=== PATIENT | female | born 1970 | race Caucasian/White ===

== ENCOUNTER 2018-02-12 14:18 | Emergency (ER) | payer MEDICARE, MEDICAID ==
[2018-02-12] MEDS ORDERED: Sodium Chloride 0.9% 1,000 ML IV ONE (14:43)
[2018-02-12] MEDS ORDERED: Morphine 2 MG/ML Syringe IVPUSH ONE (14:44)
--- NOTE | 2018-02-12 14:56 | EDM.PDOC ---
ED HPI GENERAL MEDICAL PROBLEM - General Chief Complaint: General Stated Complaint: PT SPOKE TO NURSE Time Seen by Provider: 02/12/18 14:24 Source of Information: Reports: Patient History Limitations: Reports: No Limitations - History of Present Illness INITIAL COMMENTS - FREE TEXT/NARRATIVE: HISTORY AND PHYSICAL: History of present illness: Patient is a 45-year-old female who presents to the emergency room with complaints of extreme fatigue, generalized muscle aches, one episode of coffee- ground emesis last week and one dark tarry stool yesterday. Patient has chronic kidney disease and does receive dialysis 3 times per week. She states that she had lab work done through dialysis last week and was called with a result of a low hemoglobin that would require transfusion. They requested that she present to the emergency room at that time but she states she waited until today as the fatigue has become more bothersome. She denies any fever, chills, chest pain or shortness of breath. Denies any abdominal pain, nausea, vomiting, diarrhea or constipation. Patient reports that she has received multiple blood transfusions in the past. She sees at [facility] in [place] Review of systems: As per history of present illness and below otherwise all systems reviewed and negative. Past medical history: As per history of present illness and as reviewed below otherwise noncontributory. Surgical history: As per history of present illness and as reviewed below otherwise noncontributory. Social history: No reported history of drug or alcohol abuse. Family history: As per history of present illness and as reviewed below otherwise noncontributory. Physical exam: General: Nontoxic-appearing 47-year-old female. She is alert and oriented. Appears in no acute distress. Very thin and frail appearing. HEENT: Atraumatic, normocephalic, pupils equal and reactive bilaterally, negative for conjunctival pallor or scleral icterus, mucous membranes moist, throat clear, neck supple, nontender, trachea midline. No drooling or trismus noted. No meningeal signs Lungs: Clear to auscultation, breath sounds equal bilaterally, chest nontender. Heart: S1S2, regular rate and rhythm without overt murmur Abdomen: Soft, nondistended, very thin, nontender. Negative for masses or hepatosplenomegaly. Negative for costovertebral tenderness. Pelvis: Stable nontender. Genitourinary: Deferred. Rectal: This was done with a santa's helper at the bedside and consent. Good rectal tone. Patient is Hemoccult positive. Stool is dark in color. Skin: Pale, intact, warm, dry. No lesions or rashes noted. Extremities: Atraumatic, moves all per self, negative for cords or calf pain. Neurovascular unremarkable. Neuro: Awake, alert, oriented. Cranial nerves II through XII unremarkable. Cerebellum unremarkable. Motor and sensory unremarkable throughout. Exam nonfocal. Notes: Vital signs are stable. Patient does appear pale. Patient states that her hemoglobin that was drawn a few days ago was 5.0.. Patient is aware that if she does have any admission needs that she will need to be transferred due to the fact that our hospital does not have inpatient dialysis. She voices understanding and is agreeable to plan of care. We'll continue to monitor. 1600: Nursing staff and the [employer] are having difficulty with an IV start for blood draw and the therapeutics. Dialysis staff states that they will come and draw off of her analysis site for the blood draw. Vitals remain stable. 1700: She remained vitally stable. Again we do not have inpatient dialysis availability and therefore requires transfer. Patient is aware of this and agreeable. Dr Cano, Hospitalist, as [facility] was contacted. He has agreed to accept this patient for direct admission. Ground ambulance has been contacted. Diagnostics: CBC, CMP, UA, Amylase, Lipase, CT abd/pelvis (cancelled), ERIC (+ Hemoccult) Therapeutics: Normal Saline, Morphine, RBC x 2 units Impression: Chronic Kidney Disease Anemia (requiring blood transfusion) Plan: Transfer to [facility] per Dr Cano Definitive disposition and diagnosis as appropriate pending reevaluation and review of above. Duration: Day(s): whole body Pain Score (Numeric/FACES): 4 - Related Data Allergies Allergy/AdvReac Type Severity Reaction Status Date / Time Penicillins Allergy Swelling Verified 02/12/18 14:26 Home Meds: Home Meds Buprenorphine [Butrans] 50 patch TOP DAILY 02/12/18 [History] Divalproex Sodium 2 mg PO DAILY 02/12/18 [History] Furosemide 1 mg PO BID 02/12/18 [History] Metoprolol Succinate 50 mg PO BID 02/12/18 [History] amLODIPine [Norvasc] 20 mg PO BID 02/12/18 [History] buPROPion [Wellbutrin] 02/12/18 [History] hydrALAZINE HCl [Hydralazine HCl] 1 mg PO BID 02/12/18 [History] oxyCODONE HCl/Acetaminophen [Oxycodone-Acetaminophen 5-325] 2 mg PO BID [History] tiZANidine [Zanaflex] 02/12/18 [History] Past Medical History HEENT History: Reports: None Cardiovascular History: Reports: None Respiratory History: Reports: None Gastrointestinal History: Reports: None Genitourinary History: Reports: Other (See Below) Other Genitourinary History: Poly cystic kidney disease [facility] History: Reports: None Musculoskeletal History: Reports: Arthritis, Neck Pain, Chronic Neurological History: Reports: None Psychiatric History: Reports: None, Anxiety, Depression Endocrine/Metabolic History: Reports: Other (See Below) Other Endocrine/Metabolic History: hyperkalemia Hematologic History: Reports: Anemia, Blood Transfusion(s) Immunologic History: Reports: None Oncologic (Cancer) History: Reports: None Dermatologic History: Reports: None - Infectious Disease History Infectious Disease History: Reports: Chicken Pox - Past Surgical History HEENT Surgical History: Reports: None Cardiovascular Surgical History: Reports: None Respiratory Surgical History: Reports: None GI Surgical History: Reports: None Female Surgical History: Reports: Other (See Below) Other Female Surgeries/Procedures: Two kidney transplants Neurological Surgical History: Reports: None Musculoskeletal Surgical History: Reports: None Oncologic Surgical History: Reports: None Social & Family History - Family History Family Medical History: Noncontributory - Tobacco Use Smoking Status *Q: Never Smoker Second Hand Smoke Exposure: No - Caffeine Use Caffeine Use: Reports: Coffee - Recreational Drug Use Recreational Drug Use: No ED ROS GENERAL - Review of Systems Review Of Systems: ROS reveals no pertinent complaints other than HPI. ED EXAM, GENERAL - Physical Exam Exam: See Below (See dictation) Course - Vital Signs Last Recorded V/S: Last Vital Signs Temp 96.8 F 02/12/18 14:34 Pulse 73 02/12/18 16:56 Resp 18 02/12/18 16:56 BP 166/92 H 02/12/18 16:56 Pulse Ox 100 02/12/18 16:56 - Orders/Labs/Meds Orders: Active Orders 24 hr Category Date Time Status Abdomen Pelvis wo Cont [CT] Stat Exams 02/12/18 14:43 Taken RED BLOOD CELLS LP [BBK] Stat Lab 02/12/18 16:20 Results TYPE AND SCREEN [BBK] Stat Lab 02/12/18 16:20 Results UA W/MICROSCOPIC [URIN] Stat Lab 02/12/18 14:43 Ordered Sodium Chloride 0.9% [Normal Saline] 1,000 ml Med 02/12/18 16:00 Active IV ASDIRECTED Transfuse Red Blood Cells [COMM] Stat Oth 02/12/18 16:30 Ordered Medication Orders Sodium Chloride (Normal Saline) 1,000 mls @ 125 mls/hr IV ASDIRECTED VÍCTOR Labs: Laboratory Tests 02/12/18 02/12/18 02/12/18 Range/Units 16:20 16:20 16:20 WBC 5.98 (4.0-11.0) K/uL RBC 1.58 L (4.30-5.90) M/uL Hgb 4.8 L* (12.0-16.0) g/dL Hct 14.2 L (36.0-46.0) % MCV 89.9 (80.0-98.0) fL MCH 30.4 (27.0-32.0) pg MCHC 33.8 (31.0-37.0) g/dL RDW Std Deviation 57.7 (28.0-62.0) fl RDW Coeff of Jessika 18 H (11.0-15.0) % Plt Count 263 (150-400) K/uL MPV 8.50 (7.40-12.00) fL Neut % (Auto) 55.6 (48.0-80.0) % Lymph % (Auto) 30.9 (16.0-40.0) % [place] % (Auto) 6.5 (0.0-15.0) % Eos % (Auto) 6.5 (0.0-7.0) % Baso % (Auto) 0.5 (0.0-1.5) % Neut # (Auto) 3.3 (1.4-5.7) K/uL Lymph # (Auto) 1.9 (0.6-2.4) K/uL [place] # (Auto) 0.4 (0.0-0.8) K/uL Eos # (Auto) 0.4 (0.0-0.7) K/uL Baso # (Auto) 0.0 (0.0-0.1) K/uL Nucleated RBC % 0.0 /100WBC Nucleated RBCs # 0 K/uL Sodium 136 (136-145) mmol/L Potassium 5.6 H (3.5-5.1) mmol/L Chloride 97 L (98-107) mmol/L Carbon Dioxide 24.0 (21.0-32.0) mmol/L BUN 88 H (7.0-18.0) mg/dL Creatinine 11.6 H (0.6-1.0) mg/dL Est Cr Clr Drug Dosing 4.25 mL/min Estimated GFR (MDRD) 3.5 ml/min Glucose 115 H (74-106) mg/dL Calcium 9.6 (8.5-10.1) mg/dL Total Bilirubin 0.3 (0.2-1.0) mg/dL AST 19 (15-37) IU/L ALT 23 (14-63) IU/L Alkaline Phosphatase 37 L (46-116) U/L Creatine Kinase 44 (26-308) U/L Total Protein 6.7 (6.4-8.2) g/dL Albumin 3.7 (3.4-5.0) g/dL Globulin 3.0 (2.0-3.5) g/dL Albumin/Globulin Ratio 1.2 L (1.3-2.8) Amylase 103 (25-115) U/L Lipase 336 (73-393) U/L Blood Type A POSITIVE Antibody Screen NEGATIVE Crossmatch See Detail Meds: Medications Generic Name Dose Route Start Last Admin Trade Name Freq PRN Reason Stop Dose Admin Sodium Chloride 1,000 mls @ 125 mls/hr 02/12/18 16:00 Normal Saline IV ASDIRECTED VÍCTOR Discontinued Medications Generic Name Dose Route Start Last Admin Trade Name Freq PRN Reason Stop Dose Admin Sodium Chloride 1,000 mls @ 999 mls/hr 02/12/18 14:43 Normal Saline IV 02/12/18 15:43 STAT ONE Morphine Sulfate 2 mg 02/12/18 14:44 Morphine IVPUSH 02/12/18 14:45 ONETIME ONE Departure - Departure Time of Disposition: 17:15 Disposition: DC/Tfer to Acute Hospital 02 Clinical Impression: Chronic kidney disease Qualifiers: Chronic kidney disease stage: on chronic dialysis Qualified Code(s): N18.6 - End stage renal disease; Z99.2 - Dependence on renal dialysis Anemia Qualifiers: Anemia type: unspecified type Qualified Code(s): D64.9 - Anemia, unspecified - Discharge Information Referrals: PCP,None [Primary Care Provider] - Forms: ED Department Discharge - My Orders Last 24 Hours: My Active Orders 02/12/18 14:43 Abdomen Pelvis wo Cont [CT] Stat UA W/MICROSCOPIC [URIN] Stat 02/12/18 16:00 Sodium Chloride 0.9% [Normal Saline] 1,000 ml IV ASDIRECTED 02/12/18 16:20 RED BLOOD CELLS LP [BBK] Stat TYPE AND SCREEN [BBK] Stat 02/12/18 16:30 Transfuse Red Blood Cells [COMM] Stat - Assessment/Plan Last 24 Hours: My Active Orders 02/12/18 14:43 Abdomen Pelvis wo Cont [CT] Stat UA W/MICROSCOPIC [URIN] Stat 02/12/18 16:00 Sodium Chloride 0.9% [Normal Saline] 1,000 ml IV ASDIRECTED 02/12/18 16:20 RED BLOOD CELLS LP [BBK] Stat TYPE AND SCREEN [BBK] Stat 02/12/18 16:30 Transfuse Red Blood Cells [COMM] Stat
[2018-02-12] MEDS ORDERED: Sodium Chloride 0.9% 1,000 ML IV SCH (16:00)
--- NOTE | 2018-02-12 17:56 | PCM.SN ---
- Free Text/Narrative Note: Called to ER for IV start. Hx of renal failure. Significant anemia. Numerous previous attempts. 20 g placed L lateral antecubital area. Prep x3 with alcohol followed by chloroprep. Skin local 0.2 ml 1% lidocaine. Catheter flushed with 25 ml saline. Tolerated well.
--- NOTE | 2018-02-13 13:47 | CT ---
EXAM DATE: 02/12/18 PATIENT'S AGE: 47 Patient: BELKIS OWENS Facility: [place], [place] Site . Site : 1970 Study: CT Abdomen/Pelvis wo cont [id number] 4:47:20 PM Ordering Physician: Doctor Nieto Final Report: INDICATION: Chronic kidney disease. Abdominal pain. TECHNIQUE: CT abdomen and pelvis without contrast. COMPARISON: July 14, 2016. FINDINGS: Lower chest: Left heart ventricle is incompletely imaged but appears dilated. Liver: Normal in size and attenuation. No masses. Gallbladder and bile ducts: No stones or inflammation. No biliary dilatation. Pancreas: Unremarkable. No mass or inflammation. Spleen: Normal in size. No masses. Adrenal glands: Normal in size. No nodules. Kidneys: Left lower quadrant renal transplant appears unremarkable and unchanged. GI tract: There is moderate stool retention in the colon. GI tract and appendix are otherwise within normal limits in caliber and appearance. Vasculature: Unremarkable. Lymph nodes: There are borderline enlarged retroperitoneal lymph nodes. No sign of lymphadenopathy elsewhere. Abdominal wall/Omentum/Peritoneum: Unremarkable. No sign of mass or infiltration. No free air or significant free fluid. Pelvis: Wall thickening of the urinary bladder is unchanged. Otherwise unremarkable pelvis. Bones: Unremarkable for age. IMPRESSION: 1. Moderate constipation pattern in the colon. 2. No other acute or specific finding to explain abdominal pain. 3. Stable left lower quadrant renal transplant and urinary bladder wall thickening. Please note that all CT scans at this facility use dose modulation, iterative reconstruction, and/or weight-based dosing when appropriate to reduce radiation dose to as low as reasonably achievable. Dictated by Jb Sullivan MD @ Feb 12 2018 5:10PM (Electronic Signature) Report Signed by Proxy. [facility]
== END 2018-02-12 17:50 ==
LOC: MW.ED 14:18
DX: N18.6 End stage renal disease (principal); Z88.0 Allergy status to penicillin; Z79.899 Other long term (current) drug therapy; Z99.2 Dependence on renal dialysis
CPT/HCPCS: 36415; 74176; 80053; 82150; 82550; 83690; 85025; 96361; 96374; 99285; J2270; J7040; 36410; 99284